=== PATIENT | female | born 1965 | race Two or more races ===

== ENCOUNTER 2024-08-15 11:29 | Emergency (ER) | payer OTHER ==
[~2024-08-15] VITALS: Ht 162.6 cm; Wt 108.9 kg
[2024-08-15] MEDS ORDERED: LIPITOR40 M1 (11:39)
[2024-08-15] MEDS ORDERED: ZESTRIL2.5 MG (11:39)
[2024-08-15 13:23] LABS: INR 1.11; PARTIAL THROMBOPLASTIN TIME 29.8 SECONDS (22.0-34.0)
[2024-08-15 13:27] LABS: ALBUMIN 3.8 gm/dL (3.4-5.0); BILIRUBIN TOTAL 0.56 mg/dL (0.3-1.2); CALCIUM 9.9 mg/dL (8.5-10.1); CREATININE SERUM 0.7 mg/dL (0.55-1.02); GFR 85.94; GLOBULINA 4.1 G/DL (2.4-3.5); POTASSIUM 3.8 mEq/L (3.5-5.1); TOTAL PROTEIN 7.9 gm/dL (6.4-8.2)
[2024-08-15 13:31] LABS: BASO % 0.4 % (0.1-1.2); EOS # 0.03 (0.04-0.54); EOS % 0.6 % (0.7-7.0); HEMATOCRIT 34.4 % (34.1-44.9); HEMOGLOBIN 11.5 g/dL (11.2-15.7); LYMPH # 0.67 (1.18-3.74); LYMPH % 12.8 % (19.3-53.1); MEAN CORPUSCULAR HEMOGLOBIN 27.8 pg (25.6-32.2); PLATELET COUNT 238 K/uL (163-369); RED BLOOD COUNT 4.13 M/uL (3.93-5.22); RED CELL DISTRIBUTION WIDTH 13.2 % (11.6-14.4)
[2024-08-15 13:45] LABS: URINE APPEARANCE Cloudy; URINE BILIRRUBIN Negative (NEGATIVE); URINE COLOR Yellow; URINE GLUCOSE Negative (NEGATIVE); URINE KETONE Negative (NEGATIVE); URINE LEUKOCYTE Negative; URINE NITRATE Negative; URINE PROTEIN Negative (NEGATIVE); URINE UROBILINOGEN 0.2 E.U./dl
[2024-08-15 13:47] LABS: URINE BACTERIA 96.6 uL (0.0-1933); URINE EPITHELIAL CELLS 10.2 uL (0.0-38.8); URINE RBC 52.8 uL (0.0-20.8); URINE WBC 4.4 uL (0.0-23.2)
[2024-08-15 13:54] LABS: INFLUENZA A AG POSITIVE (NEGATIVE); INFLUENZA B AG NEGATIVE (NEGATIVE)
[2024-08-15 13:55] LABS: URINE BLOOD TRACE
[2024-08-15 14:03] LABS: COVID-19 AG NEGATIVE (NEGATIVE)
[2024-08-15] MEDS ORDERED: OSELTAMIVIR PHOSPHATE 75 MG CAPSULE PO ONE ×2 (14:21→14:45)
[2024-08-15] MEDS ORDERED: ACETAMINOPHEN 325 MG TABLET PO ONE (16:45)
== END 2024-08-15 17:23 | disposition home or self-care (01) ==
LOC: ER 11:29
PROVIDERS: Emergency Medicine
DX: J10.1 Influenza due to other identified influenza virus with other respiratory manifestations (principal); J40 Bronchitis, not specified as acute or chronic; I10 Essential (primary) hypertension; Z20.822 Contact with and (suspected) exposure to COVID-19